=== PATIENT | male | born 1985 | race Caucasian/White ===

== ENCOUNTER → 2021-06-05 | Outpatient (CLI) | payer OTHER ==
--- NOTE | 2021-06-05 13:30 | KCIC ---
MR LUMBAR SPINE WO [id number] History: Reason: LUMBAR PAIN WITH LEFT RADICULOPATHY / Spl. Instructions: / History: Chronic LBP wit h flare ups since college. New injury in February w/LLE pain. Technique: Multiplanar, multi sequential MR imaging was performed of the lumbar spine. Comparison: None Findings: Normal vertebral body height and alignment. No fracture. Degenerative endplate edema L5-S1. Conus terminates at the normal location. No evidence of nerve root clumping. L1-L2: No canal or neuroforaminal narrowing. L2-L3: No canal or neuroforaminal narrowing. L3-L4: Minimal disc bulge. No canal or neuroforaminal narrowing. L4-L5: Small disc bulge. Moderate facet arthropathy. No canal narrowing. Right foraminal annular fis sure with disc protrusion. Mild right neuroforaminal narrowing. L5-S1: Small disc bulge. Moderate facet arthropathy. No canal narrowing. Mild bilateral neuroforamin al narrowing. Impression: 1. Mild lumbar spondylosis most prominent L4-5 and L5-S1. 2. L5-S1 degenerative endplate edema. Electronically signed by: Jordi Horowitz DO (06/05/2021 1:27 PM) [facility]
== END ==
LOC: KCIC MRI 09:05
PROVIDERS: ATTEND Nurse Practitioner Family
DX: M47.817 Spondylosis without myelopathy or radiculopathy, lumbosacral region (principal); M51.87 Other intervertebral disc disorders, lumbosacral region; M48.07 Spinal stenosis, lumbosacral region
CPT/HCPCS: 72148